=== PATIENT | male | born 1950 | race Caucasian/White ===

== ENCOUNTER → 2019-11-10 | Day surgery (SDC) | payer MEDICARE, OTHER ==
[2019-11-07 14:53] LABS: BASOPHILS % 0.5 % (0.0-1.0); EOSINOPHILS # (AUTO) 0.2 (0.0-0.4); EOSINOPHILS % 2.6 % (0.0-6.0); HEMATOCRIT 40.2 % (38.2-49.6); HEMOGLOBIN 13.1 g/dL (14.0-18.0); LYMPHOCYTES # (AUTO) 2.8 (1.0-3.2); MEAN CORPUSCULAR HEMOGLOBIN 26.7 pg (28-32); MEAN CORPUSCULAR HGB CONC 32.6 g/dL (31-35); MONOCYTES # (AUTO) 0.5 (0.2-0.8); MONOCYTES % 6.9 % (4.4-11.3); NEUTROPHILS # (AUTO) 4.2 (2.1-6.9); NEUTROPHILS % 53.6 % (38.7-80.0); PLATELET COUNT 238 x10e3/uL (140-360); RED CELL DISTRIBUTION WIDTH 14.1 % (11.7-14.4)
[2019-11-07 15:09] LABS: ANION GAP 15.2 mmol/L (8-16); CREATININE, SERUM 1.3 mg/dL (0.72-1.25); POTASSIUM 4.2 mmol/L (3.5-5.1)
--- NOTE | 2019-11-07 15:36 | Diagnostic Imaging Report ---
Exam: KUB - 2 views Indication: Preop Comparison: None Findings: Left internal nephroureteral stent in place. There is a 5 mm calcific density along the lateral aspect of the upper third of the stent at the level of L3-4 which may represent a ureteral calculus. 3 mm right upper pole and right lower pole renal calculi. No additional radiographically apparent urinary calculi. Nonobstructive bowel gas pattern. No free air. Status post cholecystectomy. No acute osseous injury. Impression: Left internal nephroureteral stent in place. Possible 5mm left ureteral calculus lateral to the proximal third of the stent. 3mm right renal calculi. Signed by: Kandi Colindres MD on 11/07/2019 3:33 PM
--- NOTE | 2019-11-09 15:19 | Diagnostic Imaging Report ---
EXAMINATION: CHEST 2 VIEWS INDICATION: Pre-operative COMPARISON: None FINDINGS: LINES/TUBES:None LUNGS:The lungs are well-inflated. No focal consolidation or pulmonary edema. PLEURA:No pleural effusion or pneumothorax. MEDIASTINUM:The cardiomediastinal silhouette appears normal in size and shape. BONES/SOFT TISSUES:No acute osseous injury. ABDOMEN:No free air under the diaphragm. Status post cholecystectomy. IMPRESSION: No focal pneumonia or pulmonary edema. Signed by: Kandi Colindres MD on 11/09/2019 3:16 PM
[~2019-11-10] MED LIST: AMPICILLIN SOD 1 GM/NS 50ML 50 ML IV ONE; ASPIR 8181 MG PO; B&O 60MG R/S 60 MG SUPP PR ONE; BACTRIM DS TAB1 EACH PO; FENTANYL CITRATE/PF 100MCG/2 ML INJ ONE; GENTAMICIN 80MG/NS 100 ML 200 ML IV ONE; HYDROXYCHLOROQ200 MG PO; IOPAMIDOL 300MG/ML 50ML INFUS..BTL IV ONE; LIDOCAINE HCL 2% LOCAL INJ 5 ML SDV VIAL INJ ONE; LIPITOR10 MG PO; METFORMIN HCL500 MG PO; METHYLPREDNISOLO4 MG PO; METOPROLOL SUCC50 MG PO; MIDAZOLAM HCL 2 MG/2 ML VIAL ONE; ONDANSETRON HCL INJ 2MG/ML 2ML 2 MG/ML VIAL ONE; PLAVIX75 MG PO; PROPOFOL IV EMULSION 10 MG/ML 20 ML VIAL ONE; SEVOFLURANE INHAL SOLN 250 ML PEN BTL ONE
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
[2019-11-10 10:30] VITALS: BP 119/88
--- NOTE | 2019-12-25 00:20 | Operative Report ---
DATE OF PROCEDURE: 11/10/2019 SURGEON: Shay Rucker MD PREOPERATIVE DIAGNOSIS: Left ureterolithiasis. POSTOPERATIVE DIAGNOSIS: Left ureterolithiasis. OPERATIONS PERFORMED: 1. Staged left-sided extracorporeal shockwave lithotripsy. 2. Supervision of fluoroscopy, no radiologist present. ANESTHESIA: General. COMPLICATIONS: None. CLINICAL SUMMARY: Enrico Renteria is a 69-year-old man, who underwent ureteral stenting by another urologist for obstructing left ureterolithiasis. The patient is brought to the operating room today to manage the stone. He is aware of the risks of bleeding, infection, injury to adjacent structures. He understands he will need additional procedures to remove his stent and render him stone free. He understands that it will be required at least one more procedure. He understood these risks and elected to proceed. OPERATIVE PROCEDURE IN DETAIL: Informed consent was verified. Enrico Renteria was properly identified, taken to the operating room, placed on the lithotripsy table in supine position. Anesthesia was uneventfully begun. The patient's left ureterolithiasis was localized with biplanar fluoroscopy with all pressure points carefully well padded. A total of 3000 shocks were delivered with stone fragmentation noted. The patient was then uneventfully reversed from anesthesia and taken to recovery room in stable condition. There were no complications to the procedure. He tolerated the procedure well. Explicit postop instructions were given. Plans will be to return the patient to the operating room for a left ureteroscopy with removal of stent and laser of stones as needed. Shay Rucker MD [place]/MODL /[id number] cc: Kevan Aguirre MD
== END | disposition home or self-care (01) ==
LOC: OR 06:06
PROVIDERS: ATTEND Urology
DX: N20.0 Calculus of kidney (principal); N39.0 Urinary tract infection, site not specified; E11.9 Type 2 diabetes mellitus without complications; I10 Essential (primary) hypertension; I25.10 Atherosclerotic heart disease of native coronary artery without angina pectoris; K21.9 Gastro-esophageal reflux disease without esophagitis; R91.1 Solitary pulmonary nodule; Z01.810 Encounter for preprocedural cardiovascular examination; Z01.812 Encounter for preprocedural laboratory examination; Z01.818 Encounter for other preprocedural examination; Z11.59 Encounter for screening for other viral diseases; Z79.82 Long term (current) use of aspirin; Z79.84 Long term (current) use of oral hypoglycemic drugs
CPT/HCPCS: 36415 ×2; 50590; 71046; 74018; 80048; 82948; 84550; 85025; 87635; 93005; J0290; J1580; J2001; J2250; J2405; J2704; J3010; U0002

== ENCOUNTER 2019-12-15 17:45 | Emergency (ER) | payer MEDICARE, OTHER ==
[~2019-12-15] VITALS: Ht 177.8 cm; Wt 84.8 kg
[~2019-12-15 17:45] MED LIST changes: -AMPICILLIN SOD 1 GM/NS 50ML 50 ML IV ONE; -B&O 60MG R/S 60 MG SUPP PR ONE; -BACTRIM DS TAB1 EACH PO; -FENTANYL CITRATE/PF 100MCG/2 ML INJ ONE; -GENTAMICIN 80MG/NS 100 ML 200 ML IV ONE; -IOPAMIDOL 300MG/ML 50ML INFUS..BTL IV ONE; -LIDOCAINE HCL 2% LOCAL INJ 5 ML SDV VIAL INJ ONE; -MIDAZOLAM HCL 2 MG/2 ML VIAL ONE; -ONDANSETRON HCL INJ 2MG/ML 2ML 2 MG/ML VIAL ONE; -PROPOFOL IV EMULSION 10 MG/ML 20 ML VIAL ONE; -SEVOFLURANE INHAL SOLN 250 ML PEN BTL ONE
[2019-12-15] MEDS ORDERED: SODIUM CHLORIDE 0.9% 1000ML 1,000 ML IV STA (18:27)
[2019-12-15] MEDS ORDERED: LORAZEPAM INJ 2 MG/ML VIAL IV ONE (18:30)
[2019-12-15] MEDS ORDERED: CEFTRIAXONE SOD 1 GM/NS 50 ML 50 ML IV ONE (18:30)
--- NOTE | 2019-12-15 18:37 | Emergency Department Note ---
History of Present Illnes History of Present Illness Chief Complaint: Flank Pain History of Present Illness This is a 69 year old male arrived to the ED with complaints of fever and left flank pain after stent removal yesterday by Dr. Rucker. Historian: Patient Arrival Mode: Car Irrigationist Designer Required: Yes Onset (how long ago): day(s) Severity: mild Timing of current episode: constant Progression: waxing and waning Chronicity: new Context: Reports recent surgery Relieving factors: none Past Medical/Family History Physician Review I have reviewed the patient's past medical and family history. Any updates have been documented here. Past Medical History Recent Fever: Yes Clinical Suspicion of Infectio: Yes New/Unexplained Change in Ment: No Past Medical History: Hypertension, Diabetes, Kidney Stones Past Surgical History: Cholecysctectomy, Appendectomy Other Surgery: stent in circumflex stent in left kidney orthoscopic surgery bilateral knees Social History Physically hurt or threatened: No Review of Systems Review of Systems Constitutional: Reports no symptoms EENTM: Reports no symptoms Cardiovascular: Reports no symptoms Respiratory: Reports no symptoms Gastrointestinal: Reports no symptoms Genitourinary: Reports as per HPI, Reports dysuria, Reports frequency, Reports pain Musculoskeletal: Reports no symptoms Integumentary: Reports no symptoms Neurological: Reports no symptoms Psychological: Reports no symptoms Endocrine: Reports no symptoms Hematological/Lymphatic: Reports no symptoms Physical Exam Related Data Allergies: Coded Allergies: No Known Allergies (Unverified , 11/07/19) Triage Vital Signs Vital Signs Date Time Temp Pulse Resp B/P (MAP) Pulse Ox O2 Delivery O2 Flow Rate FiO2 12/15/19 18:17 99.5 80 18 135/78 98 Room Air Vital signs reviewed: Yes Physical Exam CONSTITUTIONAL Constitutional: Present well-developed, Present well-nourished HENT HENT: Present normocephalic, Present atraumatic, Present oropharynx clear/moist, Present nose normal HENT L/R: Present left ext ear normal, Present right ext ear normal EYES Eyes: Reports PERRL, Reports conjunctivae normal NECK Neck: Present ROM normal PULMONARY Pulmonary: Present effort normal, Present breath sounds normal CARDIOVASCULAR Cardiovascular: Present regular rhythm, Present heart sounds normal, Present capillary refill normal, Present normal rate GASTROINTESTINAL Abdominal: Present soft, Present nontender, Present bowel sounds normal GENITOURINARY Genitourinary: Present exam deferred SKIN Skin: Present warm, Present dry MUSCULOSKELETAL Musculoskeletal: Present ROM normal NEUROLOGICAL Neurological: Present alert, Present oriented x 3, Present no gross motor or sensory deficits PSYCHOLOGICAL Psychological: Present mood/affect normal, Present judgement normal Results Laboratory Lab results reviewed: Yes Imaging Imaging results reviewed: Yes Assessment & Plan Medical Decision Making MDM 61-year-old male brought to the ED after stent removal, complaining of pain and fever. Recommended hospital admission for urology evaluation, however, patient wished to be discharged home. Patient understands he is welcome to return to the emergency department anytime. Patient given a dose of Rocephin in the ED, urine culture was sent patient's urologist Dr. Rucker was informed. Patient instructed to take Tylenol every 4-6 hours for fever. Patient has decided to leave the hospital against medical advice. At this time re-evaluated patient and discussed at bedside the followin. Capacity: Patient has capacity to communicate, ability to understand information, and the ability to manipulate the information presented to make a logical decision. 2. Communication of risk: Discussed with patient at bedside potential risks, potential outcomes, alternative approaches in a patient-centered manner. We discussed the specific risks of sepsis, including worsening condition, and . Patient understands we would welcome a return visit at any time to complete the work-up. At this time, patient is discharged against medical advice from my care. Assessment & Plan Final Impression: (1) UTI (urinary tract infection) Depart Disposition: HOME, SELF-CARE Last Vital Signs Date Time Temp Pulse Resp B/P (MAP) Pulse Ox O2 Delivery O2 Flow Rate FiO2 12/15/19 18:17 99.5 80 18 135/78 98 Room Air Home Meds Active Scripts Sulfamethoxazole/Trimethoprim (BACTRIM DS TABLET) 1 Each Tablet, 1 TAB PO BID, #20 TAB 0 Refills Prov:CONSTANTIN SOSA, DO 12/15/19 Reported Medications Atorvastatin Calcium* (LIPITOR*) 10 Mg Tablet, 40 MG PO HS, TAB 11/07/19 Metoprolol Succinate (METOPROLOL SUCCINATE) 50 Mg Tab.er.24h, 25 MG PO BID, MG 11/07/19 Hydroxychloroquine Sulfate (HYDROXYCHLOROQUINE SULFATE) 200 Mg Tablet, 200 MG PO DAILY 11/07/19 Methylprednisolone (METHYLPREDNISOLONE) 4 Mg Tablet, PO PRN 11/07/19 Clopidogrel Bisulfate* (PLAVIX) 75 Mg Tablet, 75 MG PO DAILY, #30 TAB 11/07/19 Metformin Hcl (METFORMIN HCL) 500 Mg Tablet, 500 MG PO BID, #60 TAB 11/07/19 Aspirin (ASPIR 81) 81 Mg Tablet.dr, PO DAILY 11/07/19 Medications in the ED Sodium Chloride 1,000 ml @ 0 mls/hr Q0M STAT IV ; Start 12/15/19 at 18:27; Stop 12/15/19 at 18:29; Status DC Lorazepam 1 mg ONCE ONCE IV ; Start 12/15/19 at 18:30; Stop 12/15/19 at 18:31; Status DC Ceftriaxone Sodium 50 ml @ 100 mls/hr ONCE ONCE IV ; Start 12/15/19 at 18:30; Stop 12/15/19 at 18:59 CONSTANTIN SOSA, Dec 15, 2019 18:36
--- NOTE | 2019-12-15 18:54 | NUR ---
report given to Ollie HUMPHREY
[2019-12-15 19:13] LABS: BASOPHILS % 0.3 % (0.0-1.0); EOSINOPHILS # (AUTO) 0.2 (0.0-0.4); EOSINOPHILS % 2.5 % (0.0-6.0); HEMATOCRIT 38.7 % (38.2-49.6); HEMOGLOBIN 12.5 g/dL (14.0-18.0); LYMPHOCYTES # (AUTO) 1.6 (1.0-3.2); LYMPHOCYTES % 18.2 % (18.0-39.1); MEAN CORPUSCULAR HEMOGLOBIN 27.4 pg (28-32); MEAN CORPUSCULAR HGB CONC 32.3 g/dL (31-35); MEAN CORPUSCULAR VOLUME 84.7 fL (81-99); MONOCYTES # (AUTO) 0.8 (0.2-0.8); MONOCYTES % 8.6 % (4.4-11.3); NEUTROPHILS # (AUTO) 6.2 (2.1-6.9); NEUTROPHILS % 69.8 % (38.7-80.0); PLATELET COUNT 214 x10e3/uL (140-360); RED BLOOD COUNT 4.57 x10e6/uL (4.3-5.7); RED CELL DISTRIBUTION WIDTH 13.9 % (11.7-14.4)
[2019-12-15 19:22] LABS: COLOR,URINE AMBER (YELLOW)
[2019-12-15 19:23] LABS: BILIRUBIN,URINE SMALL (NEGATIVE); CLARITY,URINE SL CLOUDY (CLEAR); KETONES,URINE TRACE (NEGATIVE); LEUKOCYTE ESTERASE ,URINE NEGATIVE (NEGATIVE); NITRITE,URINE POSITIVE (NEGATIVE); PROTEIN,URINE DIPSTICK 2+ (NEGATIVE); URINE UROBILINOGEN 1 mg/dL (0.2 - 1)
[2019-12-15] MEDS ORDERED: ACETAMINOPHEN 325 MG TAB PO ONE (19:30)
[2019-12-15 19:35] LABS: ALBUMIN 3.3 g/dL (3.5-5.0); ALBUMIN/GLOBULIN RATIO 0.8 (0.8-2.0); ANION GAP 16.8 mmol/L (8-16); CALCIUM 8.7 mg/dL (8.4-10.2); CREATININE, SERUM 1.44 mg/dL (0.72-1.25); POTASSIUM 3.8 mmol/L (3.5-5.1)
[2019-12-15 19:44] LABS: BACTERIA,URINE MANY /HPF; RBC,URINE >50 /HPF (0-5); WBC,URINE (MAN) 0-5 /HPF (0-5)
[2019-12-15] MEDS ORDERED: IOPAMIDOL 370 MG/ML 200 ML INFUS..BTL INJ ONE (19:49)
[2019-12-15] MEDS ORDERED: SODIUM CHLORIDE 0.9% 50ML 50 ML ONE (19:49)
--- NOTE | 2019-12-15 20:24 | Diagnostic Imaging Report ---
EXAMINATION: CT of the abdomen and pelvis with contrast. TECHNIQUE: Helical CT images of the abdomen and pelvis were performed from the lung bases to the lesser trochanters after the intravenous administration of 100 cc of Isovue 300 and the oral administration of none. Coronal and sagittal reformatted images were obtained. Dose modulation, iterative reconstruction, and/or weight based adjustment of the mA/kV was utilized to reduce the radiation dose to as low as reasonably achievable. COMPARISON: None. CLINICAL HISTORY:Left flank pain, recent stent removal DISCUSSION: ABDOMEN/PELVIS: LOWER THORAX:Lower lung atelectasis. HEPATOBILIARY: No focal hepatic lesions. No intra-or extrahepatic biliary ductal dilation. Cholecystectomy. SPLEEN: No splenomegaly. PANCREAS: No focal masses or ductal dilatation. ADRENALS: No adrenal nodules. KIDNEYS/URETERS: Bilateral renal cysts. Bilateral renal calculi, 3 on the right measuring up to 4 mm and one on the left 5 mm. Foci of gas in the left renal pelvis with history of prior stent. PELVIC ORGANS/BLADDER: Gas within the bladder. PERITONEUM/RETROPERITONEUM: No free air or fluid. LYMPH NODES: No intra-abdominal, retroperitoneal, pelvic or inguinal lymphadenopathy. VESSELS: The celiac trunk,superior and inferior mesenteric and bilateral renal arteries are patent The portal, superior mesenteric and splenic veins are patent. GI TRACT: No obstruction. Colonic diverticulosis without inflammatory change. BONES AND SOFT TISSUE: No bony destructive lesions. No soft tissue abnormalities. IMPRESSION: No acute CT finding. Foci of gas within the left renal pelvis with history of prior stent. No hydronephrosis or abscess. Bilateral simple renal cysts and nonobstructing renal calculi. Colonic diverticulosis without inflammatory change. Signed by: Dr. Nilo Underwood M.D. on 12/15/2019 8:21 PM
[2019-12-15] MEDS ORDERED: BACTRIM DS TAB1 EACH PO (20:43)
[2019-12-15 21:03] VITALS: BP 118/64
--- NOTE | 2019-12-15 21:15 | NUR ---
dr toscano spoke to dr nagy regarding pt. informed that urine culture ordered and sent to lab. dr nagy also informed that patient does not want to be admitted to hospital. pt to be dc'd home c rx for abx.
== END 2019-12-15 21:19 | disposition home or self-care (01) ==
LOC: ER 18:35
DX: N39.0 Urinary tract infection, site not specified (principal); R30.0 Dysuria; R50.9 Fever, unspecified; M54.5 Low back pain; I10 Essential (primary) hypertension; E11.9 Type 2 diabetes mellitus without complications; Z87.442 Personal history of urinary calculi
CPT/HCPCS: 36415; 74177; 80053; 81001; 85025; 87086; 99284; J0696; J2060; J7030; Q9967

== ENCOUNTER 2019-12-16 00:57 | Emergency (ER) | payer MEDICARE ==
[~2019-12-16] VITALS: Ht 177.8 cm; Wt 84.8 kg
[~2019-12-16 00:57] MED LIST changes: +BACTRIM DS TAB1 EACH PO
--- NOTE | 2019-12-16 01:10 | NUR ---
PT SEEN IN TRIAGE BY MD. PT ONCE AGAIN OFFERED ADMISSION TO HOSPITAL. PT REFUSED, STATES THAT CAN NOT DRIVE ALONE AND IS WAITING IN VEHICLE IN PARKING LOT. PT STATES THAT "I JUST WANT YOU TO MAKE ME FEEL BETTER AND THEN SEND ME HOME." DR SOSA REPEATED INSTRUCTION ON TAKING TYLENOL OR MOTRIN FOR FEVER AT HOME. PT VERBALIZED UNDERSTANDING OF INSTRUCTIONS.
[2019-12-16] MEDS ORDERED: KETOROLAC TROMETHAMINE 60 MG/2 ML VIAL IM ONE (01:15)
--- NOTE | 2019-12-16 01:25 | Emergency Department Note ---
History of Present Illnes History of Present Illness Chief Complaint: Genitourinary History of Present Illness This is a 69 year old male return to the ED with complaints of fever. Patient was seen earlier in the evening by me. Patient did not wish to be admitted to the hospital at that time and was discharged home noted to have a UTI. Patient arrives with a fever of 102.6, patient states he took Tylenol a few minutes prior to arrival. Patient states he wants something to help him get better. Patient received Rocephin the ED and was discharged home on Bactrim which he has not filled yet. . Historian: Patient Arrival Mode: Car Onset (how long ago): hour(s) Radiation: Reports non-radiation Severity: mild Duration (how long): day(s) Timing of current episode: constant Past Medical/Family History Physician Review I have reviewed the patient's past medical and family history. Any updates have been documented here. Past Medical History Recent Fever: Yes Clinical Suspicion of Infectio: Yes New/Unexplained Change in Ment: No Past Medical History: Hypertension, Diabetes, Kidney Stones Past Surgical History: Cholecysctectomy, Appendectomy Other Surgery: stent in circumflex stent in left kidney orthoscopic surgery bilateral knees Review of Systems Review of Systems Constitutional: Reports as per HPI, Reports fever EENTM: Reports no symptoms Cardiovascular: Reports no symptoms Respiratory: Reports no symptoms Gastrointestinal: Reports no symptoms Genitourinary: Reports as per HPI Musculoskeletal: Reports no symptoms Integumentary: Reports no symptoms Neurological: Reports no symptoms Psychological: Reports no symptoms Endocrine: Reports no symptoms Hematological/Lymphatic: Reports no symptoms Physical Exam Related Data Allergies: Coded Allergies: No Known Allergies (Unverified , 11/07/19) Triage Vital Signs Vital Signs Date Time Temp Pulse Resp B/P (MAP) Pulse Ox O2 Delivery O2 Flow Rate FiO2 12/16/19 01:08 102.9 115 137/81 95 Room Air Vital signs reviewed: Yes Physical Exam CONSTITUTIONAL Constitutional: Present well-developed, Present well-nourished HENT HENT: Present normocephalic, Present atraumatic, Present oropharynx clear/moist, Present nose normal HENT L/R: Present left ext ear normal, Present right ext ear normal EYES Eyes: Reports PERRL, Reports conjunctivae normal NECK Neck: Present ROM normal PULMONARY Pulmonary: Present effort normal, Present breath sounds normal CARDIOVASCULAR Cardiovascular: Present regular rhythm, Present heart sounds normal, Present capillary refill normal, Present tachycardia GASTROINTESTINAL Abdominal: Present soft, Present nontender, Present bowel sounds normal GENITOURINARY Genitourinary: Present exam deferred SKIN Skin: Present warm, Present dry MUSCULOSKELETAL Musculoskeletal: Present ROM normal NEUROLOGICAL Neurological: Present alert, Present oriented x 3, Present no gross motor or sensory deficits PSYCHOLOGICAL Psychological: Present mood/affect normal, Present judgement normal Assessment & Plan Medical Decision Making MDM 69-year-old male arrives back to the ED with complaints of a fever. Spoke to patient length about the importance of admission- the same discussion was also had with the patient during his last ER visit visit a few hours ago. At that time patient states he has brought his cannot drive and is in the car in the parking lot and he cannot leave her there was he gets admitted. Unfortunately patient brought his again with him to the ED and he once again cannot stay and leave his in the car. Patient informed of continued temperature with a UTI and a recent procedure may result in sepsis, patient expressed understanding but states he wants to go home. Patient given Bactrim in the ED and ketorolac. Patient took Tylenol just prior to arrival. Patient is competent medical decision making understands risks of going home. Patient discharged from my service. Patient has decided to leave the hospital against medical advice. At this time re-evaluated patient and discussed at bedside the followin. Capacity: Patient has capacity to communicate, ability to understand information, and the ability to manipulate the information presented to make a logical decision. 2. Communication of risk: Discussed with patient at bedside potential risks, potential outcomes, alternative approaches in a patient-centered manner. We discussed the specific risks of a urinary tract infection leading to pyelonephritis and possibly sepsis versus septic shock, including worsening condition, and . Patient understands we would welcome a return visit at any time to complete the work-up. At this time, patient is discharged against medical advice from my care. Assessment & Plan Final Impression: (1) UTI (urinary tract infection) Depart Disposition: HOME, SELF-CARE Last Vital Signs Date Time Temp Pulse Resp B/P (MAP) Pulse Ox O2 Delivery O2 Flow Rate FiO2 12/16/19 01:08 102.9 115 137/81 95 Room Air Home Meds Active Scripts Sulfamethoxazole/Trimethoprim (BACTRIM DS TABLET) 1 Each Tablet, 1 TAB PO BID, #20 TAB 0 Refills Prov:CONSTANTIN SOSA DO 12/15/19 Reported Medications Atorvastatin Calcium* (LIPITOR*) 10 Mg Tablet, 40 MG PO HS, TAB 11/07/19 Metoprolol Succinate (METOPROLOL SUCCINATE) 50 Mg Tab.er.24h, 25 MG PO BID, MG 11/07/19 Hydroxychloroquine Sulfate (HYDROXYCHLOROQUINE SULFATE) 200 Mg Tablet, 200 MG PO DAILY 11/07/19 Methylprednisolone (METHYLPREDNISOLONE) 4 Mg Tablet, PO PRN 11/07/19 Clopidogrel Bisulfate* (PLAVIX) 75 Mg Tablet, 75 MG PO DAILY, #30 TAB 11/07/19 Metformin Hcl (METFORMIN HCL) 500 Mg Tablet, 500 MG PO BID, #60 TAB 11/07/19 Aspirin (ASPIR 81) 81 Mg Tablet.dr, PO DAILY 11/07/19 Medications in the ED Ketorolac Tromethamine 60 mg ONCE ONCE IM Last administered on 12/16/19at 01:16; Admin Dose 60 MG; Start 12/16/19 at 01:15; Stop 12/16/19 at 01:17; Status DC CONSTANTIN SOSA DO Dec 16, 2019 01:25
[2019-12-16] MEDS ORDERED: TRIMETHOPRIM/SULFAMETHOXAZOLE 160-800 MG TAB PO ONE (01:30)
[2019-12-16 02:02] VITALS: BP 129/74
== END 2019-12-16 02:08 | disposition left against medical advice (07) ==
LOC: ER 01:19
DX: N39.0 Urinary tract infection, site not specified (principal); I10 Essential (primary) hypertension; E11.9 Type 2 diabetes mellitus without complications; Z87.442 Personal history of urinary calculi; Z90.49 Acquired absence of other specified parts of digestive tract; Z95.5 Presence of coronary angioplasty implant and graft; Z96.0 Presence of urogenital implants; Z79.82 Long term (current) use of aspirin; Z79.84 Long term (current) use of oral hypoglycemic drugs
CPT/HCPCS: 99282; J1885

== ENCOUNTER → 2020-04-26 | Day surgery (SDC) | payer MEDICARE ==
[2020-04-23 11:37] LABS: BASOPHILS # (AUTO) 0.1 (0.0-0.1); BASOPHILS % 0.7 % (0.0-1.0); EOSINOPHILS # (AUTO) 0.2 (0.0-0.4); EOSINOPHILS % 3.4 % (0.0-6.0); HEMOGLOBIN 14.3 g/dL (14.0-18.0); LYMPHOCYTES # (AUTO) 2.3 (1.0-3.2); MEAN CORPUSCULAR HGB CONC 33.3 g/dL (31-35); MEAN CORPUSCULAR VOLUME 84.1 fL (81-99); MONOCYTES # (AUTO) 0.4 (0.2-0.8); MONOCYTES % 6.1 % (4.4-11.3); NEUTROPHILS # (AUTO) 4.1 (2.1-6.9); NEUTROPHILS % 57.5 % (38.7-80.0); PLATELET COUNT 187 x10e3/uL (140-360); RED BLOOD COUNT 5.11 x10e6/uL (4.3-5.7); RED CELL DISTRIBUTION WIDTH 13.2 % (11.7-14.4)
[2020-04-23 12:06] LABS: ANION GAP 16.6 mmol/L (8-16); CALCIUM 8.8 mg/dL (8.4-10.2); CREATININE, SERUM 1.2 mg/dL (0.72-1.25); POTASSIUM 4.6 mmol/L (3.5-5.1)
[~2020-04-26] MED LIST changes: +CEFTRIAXONE SOD 1 GM/NS 50 ML 50 ML IV ONE; +DEXAMETHASONE SOD PHOS INJ 4 MG/ML VIAL ONE; +LIDOCAINE HCL 2% LOCAL INJ 5 ML SDV VIAL INJ ONE; +MIDAZOLAM HCL 2 MG/2 ML VIAL ONE; +ONDANSETRON HCL INJ 2MG/ML 2ML 2 MG/ML VIAL ONE; +PROPOFOL IV EMULSION 10 MG/ML 20 ML VIAL ONE; +SEVOFLURANE INHAL SOLN 250 ML PEN BTL ONE
[2020-04-26 08:55] VITALS: BP 146/85
== END | disposition home or self-care (01) ==
LOC: OR 05:46
PROVIDERS: ATTEND Urology
DX: N20.0 Calculus of kidney (principal); I25.10 Atherosclerotic heart disease of native coronary artery without angina pectoris; I10 Essential (primary) hypertension; E11.9 Type 2 diabetes mellitus without complications; K21.9 Gastro-esophageal reflux disease without esophagitis; Z01.812 Encounter for preprocedural laboratory examination; Z01.818 Encounter for other preprocedural examination; Z20.828 Contact with and (suspected) exposure to other viral communicable diseases; Z79.84 Long term (current) use of oral hypoglycemic drugs; Z95.5 Presence of coronary angioplasty implant and graft; Z87.891 Personal history of nicotine dependence
CPT/HCPCS: 36415 ×2; 50590; 74018; 80048; 82948; 84550; 85025; 93005; J0696; J1100; J2001; J2250; J2405; J2704; U0002

== ENCOUNTER → 2020-06-14 | Day surgery (SDC) | payer MEDICARE ==
[2020-06-11 08:55] LABS: BASOPHILS # (AUTO) 0.1 (0.0-0.1); BASOPHILS % 0.8 % (0.0-1.0); EOSINOPHILS # (AUTO) 0.2 (0.0-0.4); EOSINOPHILS % 3.5 % (0.0-6.0); HEMATOCRIT 40.5 % (38.2-49.6); LYMPHOCYTES % 33.4 % (18.0-39.1); MEAN CORPUSCULAR HEMOGLOBIN 28.3 pg (28-32); MEAN CORPUSCULAR HGB CONC 34.6 g/dL (31-35); MONOCYTES # (AUTO) 0.4 (0.2-0.8); MONOCYTES % 7.1 % (4.4-11.3); NEUTROPHILS # (AUTO) 3.3 (2.1-6.9); NEUTROPHILS % 54.9 % (38.7-80.0); PLATELET COUNT 192 x10e3/uL (140-360); RED BLOOD COUNT 4.94 x10e6/uL (4.3-5.7); RED CELL DISTRIBUTION WIDTH 12.8 % (11.7-14.4)
[2020-06-11 09:26] LABS: ANION GAP 15.3 mmol/L (8-16); BLOOD UREA NITROGEN 12 mg/dL (7-26); BUN/CREATININE RATIO 11 (6-25); CALCIUM 8.6 mg/dL (8.4-10.2); CARBON DIOXIDE 22 mmol/L (22-29); CHLORIDE 107 mmol/L (98-107); CREATININE, SERUM 1.14 mg/dL (0.72-1.25); EST GLOMERULAR FILTRATION RATE > 60 ML/MIN (60-); GLUCOSE 242 mg/dL (74-118); POTASSIUM 4.3 mmol/L (3.5-5.1); SODIUM 140 mmol/L (136-145)
[~2020-06-14] MED LIST changes: +LIDOCAINE HCL 2% JELLY 5 ML TUBE ONE; -MIDAZOLAM HCL 2 MG/2 ML VIAL ONE
[2020-06-14 10:14] VITALS: BP 141/67
== END | disposition home or self-care (01) ==
LOC: OR 06:31
PROVIDERS: ATTEND Urology
DX: N20.0 Calculus of kidney (principal); E11.9 Type 2 diabetes mellitus without complications; I25.10 Atherosclerotic heart disease of native coronary artery without angina pectoris; E78.00 Pure hypercholesterolemia, unspecified; Z01.812 Encounter for preprocedural laboratory examination; Z01.818 Encounter for other preprocedural examination; Z20.822 Contact with and (suspected) exposure to COVID-19; Z79.82 Long term (current) use of aspirin; Z95.5 Presence of coronary angioplasty implant and graft
CPT/HCPCS: 36415 ×2; 50590; 74018; 80048; 82948; 84550; 85025; J0696; J1100; J2001 ×2; J2405; J2704; U0002

== ENCOUNTER → 2020-08-16 | Day surgery (SDC) | payer MEDICARE ==
[2020-08-13 08:23] LABS: BASOPHILS # (AUTO) 0.1 (0.0-0.1); BASOPHILS % 0.8 % (0.0-1.0); EOSINOPHILS # (AUTO) 0.3 (0.0-0.4); EOSINOPHILS % 4.3 % (0.0-6.0); HEMATOCRIT 40.6 % (38.2-49.6); HEMOGLOBIN 13.9 g/dL (14.0-18.0); LYMPHOCYTES % 30.7 % (18.0-39.1); MEAN CORPUSCULAR HEMOGLOBIN 27.7 pg (28-32); MEAN CORPUSCULAR HGB CONC 34.2 g/dL (31-35); MEAN CORPUSCULAR VOLUME 80.9 fL (81-99); MONOCYTES # (AUTO) 0.4 (0.2-0.8); MONOCYTES % 6.8 % (4.4-11.3); NEUTROPHILS # (AUTO) 3.7 (2.1-6.9); NEUTROPHILS % 56.9 % (38.7-80.0); PLATELET COUNT 196 x10e3/uL (140-360); RED BLOOD COUNT 5.02 x10e6/uL (4.3-5.7)
[2020-08-13 08:44] LABS: ANION GAP 16.2 mmol/L (8-16); BLOOD UREA NITROGEN 15 mg/dL (7-26); BUN/CREATININE RATIO 13 (6-25); CALCIUM 8.5 mg/dL (8.4-10.2); CARBON DIOXIDE 23 mmol/L (22-29); CHLORIDE 105 mmol/L (98-107); CREATININE, SERUM 1.17 mg/dL (0.72-1.25); EST GLOMERULAR FILTRATION RATE > 60 ML/MIN (60-); GLUCOSE 224 mg/dL (74-118); POTASSIUM 4.2 mmol/L (3.5-5.1); SODIUM 140 mmol/L (136-145)
[~2020-08-16] MED LIST changes: +CEFTRIAXONE SOD 1 GM VIAL ONE; -CEFTRIAXONE SOD 1 GM/NS 50 ML 50 ML IV ONE; -DEXAMETHASONE SOD PHOS INJ 4 MG/ML VIAL ONE; +EPHEDRINE SULFATE INJ 50 MG/ML VIAL ONE; +FENTANYL CITRATE/PF 100MCG/2 ML INJ ONE; -LIDOCAINE HCL 2% JELLY 5 ML TUBE ONE; +MIDAZOLAM HCL 2 MG/2 ML VIAL ONE; +SODIUM CHLORIDE 0.9% 50ML 50 ML ONE
[2020-08-16 09:18] VITALS: BP 129/80
== END | disposition home or self-care (01) ==
LOC: OR 05:29
PROVIDERS: ATTEND Urology
DX: N20.0 Calculus of kidney (principal); I25.10 Atherosclerotic heart disease of native coronary artery without angina pectoris; I45.10 Unspecified right bundle-branch block; E11.9 Type 2 diabetes mellitus without complications; H91.91 Unspecified hearing loss, right ear; Z01.810 Encounter for preprocedural cardiovascular examination; Z01.812 Encounter for preprocedural laboratory examination; Z01.818 Encounter for other preprocedural examination; Z20.822 Contact with and (suspected) exposure to COVID-19; Z79.82 Long term (current) use of aspirin; Z79.84 Long term (current) use of oral hypoglycemic drugs; Z95.5 Presence of coronary angioplasty implant and graft
CPT/HCPCS: 36415 ×2; 50590; 74018; 80048; 82948; 84550; 85025; 93005; J0696; J2001; J2250; J2405; J2704; J3010; U0002

== ENCOUNTER → 2021-05-09 | Outpatient (CLI) | payer MEDICARE ==
[~2021-05-09] MED LIST changes: -CEFTRIAXONE SOD 1 GM VIAL ONE; -EPHEDRINE SULFATE INJ 50 MG/ML VIAL ONE; -FENTANYL CITRATE/PF 100MCG/2 ML INJ ONE; -LIDOCAINE HCL 2% LOCAL INJ 5 ML SDV VIAL INJ ONE; -MIDAZOLAM HCL 2 MG/2 ML VIAL ONE; -ONDANSETRON HCL INJ 2MG/ML 2ML 2 MG/ML VIAL ONE; -PROPOFOL IV EMULSION 10 MG/ML 20 ML VIAL ONE; -SEVOFLURANE INHAL SOLN 250 ML PEN BTL ONE; -SODIUM CHLORIDE 0.9% 50ML 50 ML ONE
== END ==
LOC: RAD 12:31
PROVIDERS: ATTEND Urology
DX: N20.0 Calculus of kidney (principal)
CPT/HCPCS: 74018

== ENCOUNTER 2022-09-05 01:50 | Emergency (ER) | payer MEDICARE ==
[~2022-09-05] VITALS: Ht 177.8 cm; Wt 84.8 kg
[2022-09-05] MEDS ORDERED: IBUPROFEN 400 MG TAB ONE (02:21)
[2022-09-05] MEDS: IBUPROFEN 400 MG TAB PO ONE ×2 (02:22→02:23)
[2022-09-05] MEDS ORDERED: ACETAMINOPHEN-1 EAC4 PO (02:52)
[2022-09-05 02:54] VITALS: BP 162/86
== END 2022-09-05 03:25 | disposition home or self-care (01) ==
LOC: ER 01:57
DX: S62.615A Displaced fracture of proximal phalanx of left ring finger, initial encounter for closed fracture (principal); W22.8XXA Striking against or struck by other objects, initial encounter; Y92.89 Other specified places as the place of occurrence of the external cause
CPT/HCPCS: 99283

== ENCOUNTER 2024-03-07 07:12 | Inpatient (IN) | payer MEDICARE ==
[~2024-03-07] VITALS: Ht 177.8 cm; Wt 93.0 kg
[~2024-03-07 07:12] MED LIST changes: +ACETAMINOPHEN-1 EAC4 PO
[2024-03-07 07:15] VITALS: TEMP 97.3
[2024-03-07] MEDS ORDERED: CLOPIDOGREL75 MG (07:34)
[2024-03-07] MEDS ORDERED: TRULICITY0.75 MG/0. (07:34)
[2024-03-07 08:25] LABS: BASOPHILS % 0.4 % (0.0-1.0); EOSINOPHILS # (AUTO) 0.2 (0.0-0.4); EOSINOPHILS % 2.5 % (0.0-6.0); HEMATOCRIT 41.6 % (38.2-49.6); HEMOGLOBIN 14.2 g/dL (14.0-18.0); LYMPHOCYTES # (AUTO) 2.1 (1.0-3.2); LYMPHOCYTES % 24.4 % (18.0-39.1); MEAN CORPUSCULAR HEMOGLOBIN 29.1 pg (28-32); MEAN CORPUSCULAR HGB CONC 34.1 g/dL (31-35); MEAN CORPUSCULAR VOLUME 85.2 fL (81-99); MONOCYTES # (AUTO) 0.8 (0.2-0.8); MONOCYTES % 8.8 % (4.4-11.3); NEUTROPHILS # (AUTO) 5.4 (2.1-6.9); NEUTROPHILS % 63.3 % (38.7-80.0); PLATELET COUNT 188 x10e3/uL (140-360); RED BLOOD COUNT 4.88 x10e6/uL (4.3-5.7); RED CELL DISTRIBUTION WIDTH 13.2 % (11.7-14.4); WHITE BLOOD COUNT 8.57 x10e3/uL (4.8-10.8)
[2024-03-07] MEDS: DIPHENHYDRAMINE HCL INJ 50 MG/ML VIAL IV ONE (08:28)
[2024-03-07] MEDS: FAMOTIDINE 20 MG/2 ML VIAL IV STA (08:28)
[2024-03-07] MEDS: Vancomycin IV 1 GM in SODIUM CHLORIDE 0.9% 250ML 250 ML IV ONE (08:28)
[2024-03-07] MEDS: SODIUM CHLORIDE 0.9% 1000ML 1,000 ML IV STA (08:28)
[2024-03-07] MEDS: METHYLPREDNISOLONE SOD SUCC 125 MG/2ML VIAL IV STA (08:28)
[2024-03-07 08:51] LABS: ALBUMIN 3.8 g/dL (3.5-5.0); ALBUMIN/GLOBULIN RATIO 1.2 (0.8-2.0); ANION GAP 15.1 mmol/L (8-16); CALCIUM 8.9 mg/dL (8.4-10.2); CREATININE, SERUM 1.29 mg/dL (0.72-1.25); MAGNESIUM 1.5 MG/DL (1.3-2.1); POTASSIUM 4.1 mmol/L (3.5-5.1); TOTAL PROTEIN 7.1 g/dL (6.5-8.1)
[2024-03-07 09:05] LABS: INR 0.76; PARTIAL THROMBOPLASTIN TIME 21.8 seconds (23.8-35.5)
[2024-03-07] MEDS ORDERED: Morphine 4mg INJECTION 4 MG/ML INJ IV PRN (09:15)
[2024-03-07] MEDS ORDERED: ONDANSETRON HCL INJ 2MG/ML 2ML 2 MG/ML VIAL IV PRN (09:15)
[2024-03-07] MEDS ORDERED: HYDRALAZINE HCL 20 MG/ML VIAL IV PRN (09:30)
[2024-03-07] MEDS: HYDRALAZINE HCL 20 MG/ML VIAL IV STA (10:10)
[2024-03-07] MEDS: SODIUM CHLORIDE 0.9% 1000ML 1,000 ML IV SCH (10:16)
[2024-03-07 10:30] VITALS: PULSE 75; RESP 18
[2024-03-07 11:00] VITALS: BP 173/105; PULSE 76; RESP 20; TEMP 97.7; O2SAT 96
[2024-03-07 11:15] VITALS: BP 154/80; PULSE 76; RESP 20; TEMP 97.7; O2SAT 99
[2024-03-07 12:38] VITALS: BP 173/105; PULSE 67; RESP 17; TEMP 97.3; O2SAT 96
[2024-03-07] MEDS: DIPHENHYDRAMINE HCL INJ 50 MG/ML VIAL IV SCH (14:36)
[2024-03-07] MEDS ORDERED: POLYETHYLENE GLYCOL 3350 17 GM PACK PO PRN (15:15)
[2024-03-07] MEDS ORDERED: ACETAMINOPHEN 325 MG TAB PO PRN (15:15)
[2024-03-07 15:34] LABS: CHOL/HDL RATIO 2.6 (3.9-4.7); PHOSPHORUS 4.3 MG/DL (2.3-4.7); URIC ACID 6.1 mg/dL (4.8-8.0)
[2024-03-07 15:54] LABS: THYROID STIMULATING HORMONE 2.826 uIU/mL (0.350-4.940)
[2024-03-07 16:00] VITALS: BP 161/95; PULSE 86; RESP 18; TEMP 97.9; O2SAT 97
[2024-03-07] MEDS ORDERED: FAMOTIDINE 20 MG/2 ML VIAL IV SCH (17:00)
[2024-03-07] MEDS: DOCUSATE SODIUM 100 MG CAP PO SCH (17:33)
[2024-03-07] MEDS ORDERED: DIPHENHYDRAMINE25 MG PO (17:43)
[2024-03-07] MEDS ORDERED: ACETAMINOPHEN325 M1 PO (17:43)
[2024-03-07] MEDS ORDERED: ONDANSETRON ODT4 MG PO (17:43)
[2024-03-07] MEDS ORDERED: BACTRIM DS TAB1 EACH PO (17:43)
[2024-03-07] MEDS ORDERED: VITAMIN C500 M2 PO (17:52)
[2024-03-07] MEDS ORDERED: Vancomycin IV 1 GM in SODIUM CHLORIDE 0.9% 250ML 250 ML IV SCH (21:00)
[2024-03-08] MEDS ORDERED: FAMOTIDINE 20 MG/2 ML VIAL IV SCH (09:00)
== END 2024-03-07 19:01 | disposition home or self-care (01) | DRG 603 ==
LOC: ER 07:29 → ERHOLD 09:03 → MED/SURG2 11:14
PROVIDERS: ADMIT Internal Medicine; ATTEND Internal Medicine
DX: L03.113 Cellulitis of right upper limb (principal); E11.9 Type 2 diabetes mellitus without complications; I25.10 Atherosclerotic heart disease of native coronary artery without angina pectoris; I10 Essential (primary) hypertension; E78.49 Other hyperlipidemia; N40.0 Benign prostatic hyperplasia without lower urinary tract symptoms; L50.9 Urticaria, unspecified; M06.9 Rheumatoid arthritis, unspecified; M10.9 Gout, unspecified; Z79.02 Long term (current) use of antithrombotics/antiplatelets; Z79.82 Long term (current) use of aspirin; Z79.85 Long-term (current) use of injectable non-insulin antidiabetic drugs; Z79.84 Long term (current) use of oral hypoglycemic drugs; Z95.5 Presence of coronary angioplasty implant and graft; Z96.0 Presence of urogenital implants; Z90.49 Acquired absence of other specified parts of digestive tract; Z87.891 Personal history of nicotine dependence
CPT/HCPCS: 36415; 80053; 80061; 83036; 83735; 84100; 84439; 84443; 84550; 85025; 85610; 85730; 87040; 99283; J0360; J1200; J2543; J2919; J7030; J7050

== ENCOUNTER 2025-03-09 10:45 | Emergency (ER) | payer MEDICARE ==
[~2025-03-09] VITALS: Ht 177.8 cm; Wt 88.0 kg
[~2025-03-09 10:45] MED LIST changes: +ACETAMINOPHEN325 M1 PO; +CLOPIDOGREL75 MG; +DIPHENHYDRAMINE25 MG PO; +ONDANSETRON ODT4 MG PO; +TRULICITY0.75 MG/0.; +VITAMIN C500 M2 PO
[2025-03-09] MEDS: SODIUM CHLORIDE 0.9% 500ML 500 ML IV ONE (14:50)
[2025-03-09 15:13] LABS: BASOPHILS % 0.5 % (0.0-1.0); EOSINOPHILS % 2.7 % (0.0-6.0); LYMPHOCYTES % 27.2 % (18.0-39.1); MONOCYTES % 7.7 % (4.4-11.3); NEUTROPHILS % 60.2 % (38.7-80.0); RED CELL DISTRIBUTION WIDTH 13.0 % (11.7-14.4)
[2025-03-09 15:26] LABS: INR 0.96
[2025-03-09 15:33] LABS: EST GLOMERULAR FILTRATION RATE 67.0 ML/MIN (>=60)
[2025-03-09 15:35] VITALS: PULSE 56; RESP 18; TEMP 98.2; O2SAT 99
[2025-03-09] MEDS ORDERED: VESICARE10 MG PO (16:43)
[2025-03-09] MEDS ORDERED: PYRIDIUM100 MG PO (16:43)
[2025-03-09 18:27] VITALS: BP 158/90; PULSE 94; RESP 18
== END 2025-03-09 16:50 | disposition home or self-care (01) ==
LOC: ER 11:17
DX: R31.9 Hematuria, unspecified (principal); N39.0 Urinary tract infection, site not specified; N20.0 Calculus of kidney; K57.90 Diverticulosis of intestine, part unspecified, without perforation or abscess without bleeding; N28.1 Cyst of kidney, acquired; K40.90 Unilateral inguinal hernia, without obstruction or gangrene, not specified as recurrent; R91.8 Other nonspecific abnormal finding of lung field
CPT/HCPCS: 36415; 51702; 74176; 80053; 85025; 85610; 85730; 87086; 99283; J7040; 51700